=== PATIENT | female | born 1985 | race Two or more races ===

== ENCOUNTER 2023-10-03 22:58 | Emergency (ER) | payer MEDICAID, OTHER ==
[~2023-10-03] VITALS: Ht 157.5 cm; Wt 61.0 kg
[2023-10-03 23:14] VITALS: BP 141/85; PULSE 77; RESP 16; O2SAT 100
== END 2023-10-04 04:28 | disposition left against medical advice (07) ==
LOC: ER 22:58
DX: H92.01 Otalgia, right ear (principal); J02.9 Acute pharyngitis, unspecified; Z53.21 Procedure and treatment not carried out due to patient leaving prior to being seen by health care provider